=== PATIENT | female | born 1980 | race Caucasian/White ===

== ENCOUNTER 2016-07-22 14:20 | Inpatient (IN) | payer OTHER ==
[~2016-07-22] VITALS: Ht 175.3 cm; Wt 72.6 kg
[~2016-07-22 14:20] MED LIST: Dexamethasone 4 mg/mL Inj ONE; Morphine PF 1 mg/mL 10 mL Inj ONE; Ondansetron 2 mg/mL 2 mL Inj ONE; Oxytocin 10 Unit/mL Inj ONE; Phenylephrine/NS 100 mCg/mL 10 mL Syringe IVPUSH ONE; fentaNYL-PF 50 mCg/mL 2 mL Inj ONE
[2016-07-22] MEDS ORDERED: Lactated Ringer's 1,000 ML IV SCH ×3 (17:22→19:52)
[2016-07-22] MEDS ORDERED: Hemorrhage Kit, Post Partum XX ONE ×2 (17:25→19:55)
[2016-07-22] MEDS ORDERED: Oxytocin 10 Unit/mL Inj IM PRN ×2 (17:25→19:55)
[2016-07-22] MEDS ORDERED: Carboprost 250 mCg/mL Inj IM PRN ×2 (17:25→19:55)
[2016-07-22] MEDS ORDERED: Methylergonovine 0.2 mg/mL Inj IM PRN ×2 (17:25→19:55)
[2016-07-22] MEDS ORDERED: Sodium Citrate-Citric Acid 15 mL Solution PO SCH (17:25)
[2016-07-22] MEDS ORDERED: Aztreonam Inj 2,000 MG in Dextrose 5% Minibag Plus 100 ML IV ONE (17:30)
[2016-07-22 17:33] LABS: Mean Corpuscular Volume 85.2 fL (81-100)
[2016-07-22] MEDS ORDERED: PREN1TAB87 PO (17:57)
[2016-07-22] MEDS ORDERED: Dexamethasone 4 mg/mL Inj IVPUSH PRN (18:40)
[2016-07-22] MEDS ORDERED: HYDROmorphone 1 mg/mL Inj IVPUSH PRN (18:40)
[2016-07-22] MEDS ORDERED: EPHEDrine Sulfate 50 mg/mL Inj IVPUSH PRN (18:40)
[2016-07-22] MEDS ORDERED: fentaNYL-PF 50 mCg/mL 2 mL Inj IVPUSH PRN (18:40)
[2016-07-22] MEDS ORDERED: Ondansetron 2 mg/mL 2 mL Inj IVPUSH PRN (18:40)
[2016-07-22] MEDS ORDERED: MetoCLOpramide 5 mg/mL 2 mL Inj IVPUSH PRN (18:40)
[2016-07-22] MEDS ORDERED: Phenylephrine 10,000 mCg/mL Inj IVPUSH PRN (18:40)
[2016-07-22] MEDS ORDERED: Lactated Ringer's 500 ML IV PRN (18:40)
--- NOTE | 2016-07-22 18:40 | PCM.HPANE ---
Patient Data Surgeon Admitting Provider:Jay Avila MD Attending Provider:Jay Avila MD Primary Care Physician:Kenya Stone MD Other Provider:Cedrick Childers Anesthesia Reason for Visit Term Labor Check TERM LABOR CHECK Ht/WT & BMI Body Mass Index Allergies Coded Allergies: No Known Allergies (Unverified , 07/22/16) Diabetes History Hx Diabetes?: No Medications Hypertension Medication: No Home Meds Incl Beta Gomez: No Reported Medications Vit W-Ca,Fe,FA(<1 mg) ( Vitamins)1 Each Tablet1 Each PO DAILY 07/22/16 Stop/Bang Risk Assessment Category Category 1A: Patient has history of documented sleep apnea, and HAS NOT received any narcotic, sedative or anesthesia administration during this stay. Category 1B: Patient has history of documented sleep apnea, and HAS received any narcotic , sedative or anesthesia administration during this stay Category 2: Patient has SUSPECTED Obstructive Sleep Apnea, and HAS received any narcotic , sedative or anesthesia administration during this stay. Category 3: Patient has SUSPECTED Obstructive Sleep Apnea and HAS NOT received narcotic, sedative or anesthesia administration during this stay. Category 4: Outpatient in Procedural Areas with known sleep apnea or who screen positive for High Risk via the STOP/BANG questionnaire. Meds/Labs/Diagnostics Admission Meds Current Medications Lactated Ringer's (Lr) 1,000 ml @ 125 mls/hr Q8H IV Last administered on t 17:54; Start 07/22/16 at 17:22; Stop 07/23/16 at 01:21 Labs Test 07/22/16 17:30 White Blood Count 9.4th/mm3 (3.8-10.1) Red Blood Count 4.66mil/mm3 (3.90-5.20) Hemoglobin 13.5g/dL (12.0-15.6) Hematocrit 39.7% (35.0-46.0) Mean Corpuscular Volume 85.2fL (81-100) Mean Corpuscular Hemoglobin 29.0pg (27.0-35.0) Mean Corpuscular Hemoglobin Concent 34.0% (32.0-37.0) Red Cell Distribution Width 13.1% (12.3-15.4) Platelet Count 180bil/L (150-400) Plan Impression Patient chart reviewed, patient interviewed and anesthestic plan with risks, benefits, and alternatives discussed, and informed consent obtained. ASA Physical Status: ASA1 Normal Healthy Anesthetic Plan: SAB Bene/Risks/Altern/Consents: Yes HP Complete Prior to Induction: Yes Jimmy Diaz MD Jul 22, 2016 18:40
[2016-07-22] MEDS ORDERED: Oxytocin 30 Units/500 mL LR 30 UNITS in IV Premix 1 EACH IV PRN (19:55)
[2016-07-22] MEDS ORDERED: LANOlin HPA 7 Gm Ointment TOPICAL PRN (19:55)
[2016-07-22] MEDS ORDERED: TdaP Vaccine 0.5 mL Inj IM ONE (19:55)
[2016-07-22] MEDS ORDERED: Measles-Mumps-Rubella Vaccine 0.5 mL Inj SUBQ ONE (19:55)
[2016-07-22] MEDS ORDERED: Influenza (Adult) Vaccine 0.5 mL Syringe IM ONE (19:55)
[2016-07-22] MEDS ORDERED: hydrOXYzine Pamoate 25 mg Capsule PO PRN (19:55)
[2016-07-22] MEDS ORDERED: Sodium Chloride LOK Flush 10 mL Syringe IVFLUSH PRN (19:55)
[2016-07-22] MEDS: Acetaminophen IV 1,000 MG in IV Premix 1 EACH IV PRN (20:26)
[2016-07-23] MEDS: Acetaminophen IV 1,000 MG in IV Premix 1 EACH IV PRN (02:44)
[2016-07-23] MEDS ORDERED: Clindamycin Inj 900 MG in IV Premix 1 EACH IV SCH (06:00)
[2016-07-23] MEDS: oxyCODONE-Acetamin 5-325 mg Tablet PO PRN ×4 (06:36→20:21)
[2016-07-23 06:37] LABS: Mean Corpuscular Hemoglobin 28.8 pg (27.0-35.0); Mean Corpuscular Volume 85.6 fL (81-100)
[2016-07-23] MEDS ORDERED: Influenza (Adult) Vaccine 0.5 mL Syringe IM ONE (08:30)
[2016-07-23] MEDS ORDERED: TdaP Vaccine 0.5 mL Inj IM ONE (08:30)
[2016-07-23] MEDS ORDERED: Measles-Mumps-Rubella Vaccine 0.5 mL Inj SUBQ ONE (08:30)
--- NOTE | 2016-07-23 08:36 | OP ---
[address] [address] OPERATIVE REPORT PATIENT: CHELSEY BROWN : 1980 MR#: [id number] ADMIT: 07/22/2016 JOB ID: [id number] DATE OF SURGERY: 07/22/2016 SURGEON: Jay Avila MD CLINICAL LABORATORY SCIENCE PROFESSOR: Uche Cardoso MD ANESTHESIA: Spinal. PREOPERATIVE DIAGNOSIS(ES): 1. A 38-1/2 week . 2. Latent phase labor. 3. Patient-requested section in setting of prior traumatic vaginal delivery requiring subsequent repair by plastic surgeon. Other physician's records unavailable. 4. Reversible contraception planned for /postop. POSTOPERATIVE DIAGNOSIS(ES): 1. A 38-1/2 week . 2. Latent phase labor. 3. Patient-requested section in setting of prior traumatic vaginal delivery requiring subsequent repair by plastic surgeon. Other physician's records unavailable. 4. Reversible contraception planned for /postop. PROCEDURE: Primary low transverse section. INDICATIONS FOR SURGERY:. DATE OF SERVICE: This patient has previously undergone a traumatic vaginal with lacerations extending four directions per her report, records unavailable. She subsequent underwent some repair in the office setting and then she saw Plastic Surgery about a year after delivery and she was told that she should not have another vaginal . She weighed the pros and cons, benefits and risks, and ultimately concluded that she would prefer a primary section understanding benefits and risks, and alternatives. This was scheduled for July 25, 2016, yet she went into labor on July 22, 2016, and cervix changed over time from 1.5 cm up to 3 cm dilatation, and thus we have elected to proceed with section on July 22, 2016 at her request. FINDINGS AT SURGERY: Fetus was in vertex presentation, and amniotic fluid was clear. Ovaries and tubes were normal. Bleeding was not excessive, estimated in the 500 cc range. Uterine wall was thick, not particularly well developed from a thickness as well as width standpoint. This did not present a problem, however. At procedure's close, there was no internal bleeding occurring, uterus had been closed in double-layer, and mother and baby were doing well. It certainly is anticipated that during the postop/ timeframe, there will be no problems although we will follow the mom's condition carefully in the hospital as always, and glass or mirror inspector will follow the baby's condition. PROCEDURE IN DETAIL: The patient was placed in the supine position on the operating table after spinal anesthesia was undertaken. She was then repositioned in the left lateral tilt position and Nunez catheter was placed. Abdomen was then prepped and draped in the usual sterile manner. Appropriate time-out was taken and was brought into the room. Pfannenstiel incision was made with a knife, carried through skin, subcutaneous tissues and fascia layer. Peritoneal cavity was carefully entered. The lower uterine segment was noted to be narrow/less well-developed. Transverse incision was then made in the vesicouterine peritoneal fold as well as the lower uterine segment and uterine wall was noted to be thicker than usual consistent with some underdevelopment in spite of early labor. The incision was carried through the uterine incision down to the amniotic sac, which was then ruptured and clear fluid recovered. Head was then brought through the incision easily, followed by the shoulders, body and extremities. Baby was active and crying and vigorous on the operative field. After a 1 minute delay, umbilical cord was clamped and cut and was taken to the warmer for further management. Cord blood was then obtained for routine studies. Placenta with membranes were then massaged from the uterus, noted to be intact. Uterine cavity was gauze curettaged and the uterus exteriorized to facilitate closure of the uterine incision. This was accomplished in a running locking manner in the first layer, then with a second imbricating layer of #1 chromic suture used in a running manner. Hemostasis was noted to be complete and uterine incisional closure effective and reinforced as described. Uterus was juan j well by this point, note blood loss in the 500 cc range. Ovaries and tubes were inspected and found to be normal. Cul-de-sac area was then irrigated and suctioned of blood, clots and fluid. Uterus was then returned to the abdominal cavity and gutter areas were cleared of blood and clots and fluid. Final uterine wall incisional inspection was then undertaken and there was no further bleeding occurring at any point. Instrument, needle and sponge counts were all found to be correct. Rectus muscles were then drawn together across the midline and subfascial plane was then inspected and there were no bleeding sites. Fascial layer was then closed in a running manner using #1 PDS, and subcutaneous tissues were then irrigated and cautery applied where needed. Subcutaneous layer was not thick. Skin incision was then closed with murray and pressure dressing was applied. Uterus was expressed of blood and clots and fluid. The procedure was thus complete. Note that instrument, needle and sponge counts were once again correct as had been noted on multiple occasions. The patient was then taken to her room for recovery. BLOOD LOSS: 500 cc. COMPLICATIONS: None. PROGNOSIS: Good for surgical recovery.
--- NOTE | 2016-07-23 14:36 | PCM.ANEP1 ---
Post Anesthesia Phase 1 PACU Phase 1 Assessment Anesthetic Administered: SAB Level of Alertness: Awake, talking ADAME's with Equal Strength: No (spinal still in effect) Pain: No Nausea or Vomiting: No Oxygen Delivery: Nasal Cannula Lungs: Clear to Auscultation Dermatome Level: L3,4 (Patella) Jimmy Diaz MD Jul 23, 2016 14:36
--- NOTE | 2016-07-23 14:36 | PCM.ANEP2 ---
Post Anesthesia Evaluation ASA/CMS Post Anesthesia VS in Patient's Normal Range?: Yes Resp Stable; Airway Patent?: Yes CV Function & Hydration Stable: Yes Mental Status Recovered?: Yes Pain control Satisfactory?: Yes N/V Control Satisfactory?: Yes Jimmy Diaz MD Jul 23, 2016 14:36
--- NOTE | 2016-07-24 08:08 | PCM.DIOB ---
Obstetrical Disch Instruction Dates of Hospitalization Date of Hospital Admission Jul 22, 2016 at 17:25 Providers Admitting Physician: Jay Avila MD Primary Care Physician: Kenya Stone MD Attending Physician: Jay Avila MD Discharge Diagnosis Problems: (1) delivery due to previous difficult delivery, delivered, current hospitalization Status: Acute ICD Code: O99.89 Diet Discharge Diet: No restrictions Activity Discharge Activity-General: Pelvic Rest for 6 weeks, No lifting >10 pounds for 4-6 weeks Dressing and Incisional Care Dressing Care: Allow Steri Stripes to fall off Hygiene: May shower Follow Up Plan Follow-up appointment: Weeks (Follow up in 2 and in 6 weeks for / postoperative checkup.) Call your provider for: Fever or Chills, Shortness of breath, Heavy vaginal bleeding, Red painful breasts Jay Avila MD Jul 24, 2016 08:08
[2016-07-24] MEDS ORDERED: DOCU-41 PO (08:12)
[2016-07-24] MEDS ORDERED: IBUP-1827 PO (08:12)
[2016-07-24] MEDS ORDERED: OXYC1TAB24 PO (08:12)
[2016-07-24] MEDS: oxyCODONE-Acetamin 5-325 mg Tablet PO PRN ×5 (08:50→23:48)
[2016-07-25] MEDS: oxyCODONE-Acetamin 5-325 mg Tablet PO PRN ×2 (08:39→13:04)
[2016-07-25] MEDS ORDERED: Ondansetron 8 mg ODT Tablet ONE (12:23)
[2016-07-25] MEDS ORDERED: Ondansetron 8 mg ODT Tablet PO ONE (13:30)
[2016-07-25 15:51] VITALS: BP 138/78; PULSE 88; RESP 16
--- NOTE | 2016-09-30 08:00 | DIS ---
[address] [address] DISCHARGE SUMMARY PATIENT: CHELSEY BROWN : 1980 MR#: [id number] ADMIT: 07/22/2016 JOB ID: [id number] DIS: 07/24/2016 DISCHARGE DIAGNOSES: A 38-1/2 weeks , delivered. PROCEDURE PERFORMED DURING HOSPITALIZATION: 1. Primary low transverse section. 2. Spinal anesthesia. HOSPITAL COURSE: The patient was admitted to [facility] in early labor at 38-1/2 weeks along. She had requested primary section for this delivery in light of prior traumatic vaginal delivery that ultimately required plastic surgery repair work, and she did not want to risk a similar experience. Thus, requested. Surgery went well. During the postoperative/ course, the patient did well, with stable vitals, afebrile, reasonable urine output, reasonable bleeding, and baby okay. She gradually ambulated and gradually became more competent with getting up and down and dealing with the pain, and primarily managing the baby. It was felt that she was ready for discharge on the 2nd postop/ day. She had no incisional problem. DISCHARGE PROGRAM: The patient will call p.r.n. heavy bleeding, high fever, or incisional problem, otherwise she will follow up at two and at six weeks for /postop checkups. She will observe pelvic rest for six weeks, also to avoid heavy lifting for six weeks. DISCHARGE MEDICATIONS: Include Percocet, ibuprofen and Colace, prescriptions written, also to continue with vitamin daily while nursing (the patient has a supply at home).
--- NOTE | 2016-09-30 08:07 | PROG NOTE ---
[address] [address] PROGRESS NOTE PATIENT: CHELSEY BROWN : 1980 MR#: [id number] ADMIT: 07/22/2016 JOB ID: [id number] [facility] NOTE: DATE: 07/25/2016 SUBJECTIVE: The patient was admitted to [facility] on July 22, 2016, which day she underwent delivery. She had gradual improvement in all ways clinically, and was thought to be ready for discharge to home on July 24, 2016. Pain management and ambulation and activity and care of baby had shown gradual improvement throughout hospitalization. The patient and I discussed discharge July 24, 2016, and it was felt to be reasonable, although later on July 24, 2016, the patient requested nursing staff not be discharged, and stay one more night to gain greater confidence and have improved pain control and ambulation before going home and having primary responsibility for the baby's care. She was thus kept one more night, i.e., on July 24, 2016, now to discharge on July 25, 2016. See discharge summary note from July 24, 2016, for details. No new contribution from the vitals or other care aspects overnight, the patient was once again ready for discharge on July 25, 2016, and feeling more confident about the discharge with the extra night of hospitalization. Vitals stable, afebrile. No incisional problems. Note that murray were removed, with benzoin and half-inch Steri-Strips per nursing staff. No leg pain. IMPRESSION: Postop day #3/ day #3, doing well, for discharge. See note from July 24, 2016, for details. PLAN: The patient is discharged to home on July 25, 2016. See note from July 24, 2016, for details on discharge.
--- NOTE | 2016-09-30 10:33 | PROG NOTE ---
[address] [address] PROGRESS NOTE PATIENT: CHELSEY BROWN : 1980 MR#: [id number] ADMIT: 07/22/2016 JOB ID: [id number] [facility] NOTE: DATE: 07/23/2016 SUBJECTIVE: The patient is now postop day #1 from a primary section. She is doing well. During the postoperative/ timeframe, vitals have been stable and patient has remained afebrile, urine output has been adequate, and bleeding has been reasonable. Pain management has been acceptable, trying to optimize. The patient has handled baby well. Postop/ hemoglobin was 11.0. PLAN: Continue postoperative/ care, to further increase activity, and remove Nunez catheter. MTDD
--- NOTE | 2016-09-30 10:39 | HP ---
[address] [address] HISTORY AND PHYSICAL PATIENT: CHELSEY BROWN : 1980 MR#: [id number] ADMIT: 07/22/2016 JOB ID: [id number] [facility] NOTE: DATE: 07/22/2016 This is a re-dictation of a [facility] admission note that I dictated before yet cannot be located. I do not know if there is a different spelling similar to this patient's last name or what, but this is a re-dictation. The patient is a 36-year-old, G4, P2 AB1 woman followed at [facility]; see record for details. Note advanced maternal age, and cell-free DNA test negative. Note that she has reached 38 and a half weeks along in her , aided by progesterone injection therapy weekly in an effort to reach term, with prior 35 and 36 week deliveries. Note that the patient has specifically requested section this time, although she has had previous vaginal deliveries. She has requested cesaren delivery since having a prior very traumatic vaginal delivery that required subsequent repair by plastic surgeon. She did not want to risk similar injuries or need for extensive repair work, and thus, after weighing benefits vs. risks of vaginal delivery and cesearean section, she concluded that she felt most comfortable with delivery at this time. This was scheduled for July 25, 2016 yet the patient experienced onset of labor for which she came to the Center on July 22, 2016. The decision was thus made to proceed with section on that day as this was the patient's plans for reasons as described and as labor appeared to be true. In summary, then, this patient at 38 and a half weeks along presenting in labor is to have repeat section which will be undertaken on July 22, 2016, at her request, understanding benefits and risks, and alternatives. PHYSICAL EXAMINATION: On admission, height 68 inches, last weight in the office 158 pounds. Last blood pressure in the office 115/70. Head and neck: No thyromegaly. Lungs are clear to auscultation and percussion. Heart: Regular in rate and rhythm. Abdomen: Nontender. No mass. No surgical scarring. Pelvic examination: Vulva, vagina and cervix no obvious epithelial abnormalities. Cervix dilated from initial 1.5 cm up to 2 cm, thus indicating true labor. IMPRESSION: 1. A 38-1/2 week . 2. Labor onset. 3. Prior vaginal delivery x2, although requesting delivery this time due to prior posttraumatic vaginal with ultimate requirement for plastic surgery to repair the vulvar region per patient report. 4. Planning Mirena intrauterine device for /postoperative contraception. 5. Advanced maternal age, note cell-free DNA negative. 6. 17-hydroxyprogesterone caproate provision through 36-37 weeks of , this time reaching 38 1/2 weeks long. 7. Asthma, using albuterol inhalers p.r.n. 8. Occasional mild maternal tachycardia, without obvious concerning etiology. 9. Overall poor weight gain in the , 14 pounds overall as of last check in the office, recorded history form in the Center. 10. Rh positive. 11. Rubella immune. 12. Normal 1 hour glucose tolerance test. 13. Negative group B strep. 14. Surgical history: A. Reproductive history--vaginal delivery x2 , spontaneous early in the 1st trimester, now current at term. B. Laparoscopy with finding of endometriosis (2000). C. Breast implants (2005). D. Labial repair by plastic surgeon, 2004, reported very traumatic vaginal . 15. PENICILLIN ALLERGY (rash). 16. Family history of apparent Waldenstrom's macroglobulinemia (father). PLAN: This patient has reached 38 1/2 weeks along in the , and has gone into labor, with progressive cervical change. She has requested primary section for this delivery due to very traumatic last vaginal , and this has been well thought out, and the patient truly understands the benefits and risks. She will have delivery thus on July 22, 2016, per her informed request. KALA
== END 2016-07-25 16:20 | disposition home or self-care (01) | DRG 540 ==
LOC: FBCO 14:20 → FBC 17:25
PROVIDERS: ADMIT Obstetrics & Gynecology; ATTEND Obstetrics & Gynecology
PROC: 10D00Z1 Extraction of Products of Conception, Low, Open Approach (ICD-10-PCS; principal; 2016-07-22 18:10)
DX: O75.82 Onset (spontaneous) of labor after 37 completed weeks of gestation but before 39 completed weeks gestation, with delivery by (planned) cesarean section (principal); O99.89 Other specified diseases and conditions complicating pregnancy, childbirth and the puerperium; Z3A.38 38 weeks gestation of pregnancy; Z37.0 Single live birth

== ENCOUNTER 2016-07-26 20:46 | Emergency (ER) | payer OTHER ==
[~2016-07-26] VITALS: Ht 175.3 cm; Wt 72.2 kg
[~2016-07-26 20:46] MED LIST changes: +DOCU-41 PO; -Dexamethasone 4 mg/mL Inj ONE; +IBUP-1827 PO; -Morphine PF 1 mg/mL 10 mL Inj ONE; +OXYC1TAB24 PO; -Ondansetron 2 mg/mL 2 mL Inj ONE; -Oxytocin 10 Unit/mL Inj ONE; +PREN1TAB87 PO; -Phenylephrine/NS 100 mCg/mL 10 mL Syringe IVPUSH ONE; -fentaNYL-PF 50 mCg/mL 2 mL Inj ONE
[2016-07-26 20:51] VITALS: BP 130/79; PULSE 72; RESP 15; O2SAT 99
--- NOTE | 2016-07-26 21:00 | ED.REPORT ---
HPI-General Illness Date of Service Jul 26, 2016 ED Provider: Elvin,Ed Pt is a 36 year old female presenting to the ED complaining of bleeding from her site. She reports that the murray were taken out yesterday. Today , the pt was folding laundry when she noticed bleeding and fluid from the surgical site. She denies any abd pain or other symptoms at this time. Nursing Notes Stated Complaint: C SECTION INCISION OPENED Chief Complaint: General Complaint Nursing Notes Reviewed: Yes Allergies: Coded Allergies: Penicillins (Verified Allergy, Severe, Anaphylaxis, 07/26/16) rash, with breathing issues Scheduled Docusate Sodium (Colace) 100 Mg Capsule 100 MG PO BID Vit W-Ca,Fe,FA(<1 mg) ( Vitamins) 1 Each Tablet 1 EACH PO DAILY Scheduled PRN Ibuprofen (Ibuprofen) 600 Mg Tablet 600 MG PO Q6H PRN PRN For Pain oxyCODONE-Acetaminophen 5-325 mg (oxyCODONE-Acetaminophen 5-325 mg) 1 Each Tablet 1-2 TAB PO Q4H PRN PRN For Pain General Time Seen by MD: 20:59 Chief Complaint Other (Bleeding from surgical site) Hx Obtained From: Patient Arrived By: Walk-in Sudden in Onset?: Yes Onset Occurred: Just prior to arrival Symptom Duration: Since onset Location: : Abdomen Severity: Current: No pain currently Severity: Maximum: No pain Recent Healthcare: Recent doctor visit, Recent hospitalization, Previous surgery Similar Sx Previous: No Past Medical History Past Medical History denies Past Surgical History Reports: Smoking History Unknown if Ever Smoker Ambulatory Status Independent Review of Systems Bleeding from surgical site Full Review of Systems Constitutional: Denies: Fever Respiratory: Denies: Shortness of breath GI: Denies: Abdominal pain, Vomiting Complete sys rev & neg: except as marked. Physical Exam Vital Signs Vital Signs Date Time Temp Pulse Resp B/P Pulse Ox O2 Delivery O2 Flow Rate FiO2 07/26/16 20:51 36.5 72 15 130/79 99 Room Air Initial VS: Reviewed General/Constitutional: Well-developed, Well-nourished Head / Eyes: Atraumatic, Normocephalic, PERRL ENT: Mucous membranes moist, Conjunctiva normal, No scleral icterus Respiratory: Breath sounds normal, Clear to auscultation, No respiratory distress Cardiovascular: Regular rate & rhythm, Heart sounds normal, Intact distal pulses Extremities: Vascular intact, Neuro intact, No swelling, No tenderness Skin: Warm, Dry, No cyanosis Neurologic: Alert, Oriented, Nonfocal Psychiatric: Mood/affect normal, Behavior normal, Normal thought content Abdomen: Non-tender Wound is healing well. No purulent discharge or cellulitis. Looks like proximal right aspect of wound may have dehisced. Re-Eval/Medical Decision Med Decision/Clinical Course May be a small amount of wound dehiscence on the right lateral aspect. Certainly no signs of infection. 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 We discussed keeping close eye on this watch for signs and symptoms of infection. Time of Eval: 21:27 Patient Status: Condition improved Re-Evaluation/Progress Note: Discussed plan for discharge. Pt understands and agrees. Consultation : Referral / Consult Name: Jay Avila MD Call Returned at: 21:16 Note: OB. Agrees with plan for discharge. Counseled Regarding: Diagnosis, Lab results, Need for follow-up, When/why to return to ED Discharge & Departure Primary Impression: Wound dehiscence Disposition: Home Discharge Condition All VS Reviewed: Yes Condition: Improved Additional Instructions: Your wound looks good. Watch for infection. If you develop redness, pain, or purulent discharge return to the ER. The steri strips will fall off in time. Continue with your post operative plan. Referrals: Kenya Stone MD (PCP) Jay Avila MD Attestation Portions of this note were transcribed by Sierra Linton. I, Dr. Cruz personally performed the history, physical exam and medical decision-making; I reviewed and confirmed the accuracy of the information in the transcribed note. Signed by : Louis Mock, 07/26/2016 and 2126. copies to: Jay Avila MD; Kenya Stone MD, Todd P DO Jul 26, 2016 21:00 [place] Jul 26, 2016 21:12
== END 2016-07-26 21:33 | disposition home or self-care (01) ==
LOC: SED 20:46
DX: O90.0 Disruption of cesarean delivery wound (principal); Z88.0 Allergy status to penicillin